=== PATIENT | female | born 1955 | race Caucasian/White ===

== ENCOUNTER 2016-06-21 01:00 | Emergency (ER) | payer OTHER ==
[~2016-06-21] VITALS: Ht 154.9 cm; Wt 47.7 kg
[~2016-06-21 01:00] MED LIST: AZAT100T PO; MESA800T PO; OSPE60TA2 PO; TRM50C PO
[2016-06-21 01:12] VITALS: BP 115/47; PULSE 63; RESP 22; O2SAT 100
--- NOTE | 2016-06-21 01:23 | ED.REPORT ---
HPI-Abd Pain F 40 and Over Date of Service Jun 21, 2016 ED Provider: Dr. Ramírez Cantu MD A 60 year old female with a history of ulcerative colitis presents to the ED complaining of abdominal pain that began at 1130 this evening. Associated symptoms include nausea and diarrhea. Patient denies any similar previous episodes of pain. She denies any vomiting or any chance of . Patient is a difficult historian due to discomfort. Nursing Notes Stated Complaint: R BACK SIDE PAIN Chief Complaint: Female Abdominal Pain Nursing Notes Reviewed: Yes Allergies: Coded Allergies: morphine (Verified Allergy, Intermediate, ITCHING, 09/04/15) Scheduled Ospemifene (Osphena) 60 Mg Tablet 60 MG PO DAILY Miscellaneous Medications Azathioprine (Azasan) 100 Mg Tablet [address] (Asacol HD) 800 Mg Tablet.dr 800 MG PO Triamterene (Dyrenium) 50 Mg Capsule 50 MG PO General Time Seen by MD: 01:23 Chief Complaint Abdominal pain Hx Obtained From: Patient Arrived By: Walk-in Sudden in Onset?: No Onset Occurred: 1 - 4 hours ago Symptom Duration: Since onset Progression since Onset: Unchanged Location: : Flank right Quality: Painful Radiation: : Does not radiate Severity: Current: Moderate Severity: Maximum: Moderate Associated with: Reports: Diarrhea, Nausea, Denies: Chills, Fever, Vomiting Pertinent Negative: Pt denies other symptoms Status: test pending Recent Healthcare: No recent doctor visit, No recent hospitalization Risk Factors )( AAA Risk Stratification Risk factors reviewed Past Medical History Past Medical History Ulcerative colitis Past Surgical History Endoscopy Smoking History Never Smoker Social History Other Social History: Good social support, Local resident Ambulatory Status Independent Review of Systems Constitutional: Denies: Chills, Fever GI: Reports: Abdominal pain, Diarrhea, Nausea, Denies: Vomiting Female: Denies: Complete sys rev & neg: except as marked. Physical Exam Vital Signs Vital Signs (First) Date Time Temp Pulse Resp B/P Pulse Ox O2 Delivery O2 Flow Rate FiO2 06/21/16 01:12 36.2 63 22 115/47 100 Room Air Initial VS: Reviewed Head / Eyes: Atraumatic, Normocephalic, PERRL Neck: Supple, Non-tender, Full range of motion Extremities: Vascular intact, Neuro intact, No swelling, No tenderness Skin: Warm, Dry, No cyanosis Neurologic: Alert, Oriented, Nonfocal Psychiatric: Mood/affect normal, Behavior normal, Normal thought content General/Constitutional: Awake, Alert Distress / Hydration: Positive: Distress moderate (groaning in pain ) Respiratory / Chest: Atraumatic, Breath sounds NL, Breath sounds = bilat, No respiratory distress Cardiovascular: Heart rate NL, Regular rhythm, Heart sounds NL Abdomen: Atraumatic, Soft, Non-tender Back: Atraumatic Flank / Spine / Paraspinal: Positive: Flank tender R Interpretation & Diagnostics Lab Results Interpretation Result Diagram: 06/21/16 0145 06/21/16 0145 Test 06/21/16 01:45 White Blood Count 5.2th/mm3 (3.8-10.1) Red Blood Count 3.55mil/mm3 (3.90-5.20) Hemoglobin 12.0g/dL (12.0-15.6) Hematocrit 35.2% (35.0-46.0) Mean Corpuscular Volume 99.2fL (81-100) Mean Corpuscular Hemoglobin 33.8pg (27.0-35.0) Mean Corpuscular Hemoglobin Concent 34.1% (32.0-37.0) Red Cell Distribution Width 12.8% (12.3-15.4) Platelet Count 223bil/L (150-400) Neutrophils (%) (Auto) 54.2% (40-74) Lymphocytes (%) (Auto) 36.2% (14-46) Monocytes (%) (Auto) 7.7% (4-12) Eosinophils (%) (Auto) 1.3% (0-5) Basophils (%) (Auto) 0.4% (0-3) Prothrombin Time 10.5sec (8.1-12.5) Prothromb Time International Ratio 0.98ratio Urine Color Yellow (YELLOW) Urine Appearance Clear (CLEAR,HAZY) Urine pH 7.0 (5.0-8.0) Urine Specific [place] 1.015 (1.003-1.035) Urine Protein Negativemg/dL (NEG,TRACE) Urine Glucose (UA) Negativemg/dL (NEGATIVE) Urine Ketones Negativemg/dL (NEGATIVE) Urine Occult Blood Negative (NEGATIVE) Urine Nitrite Negative (NEGATIVE) Urine Bilirubin Negative (NEGATIVE) Urine Urobilinogen Normalmg/dL (NORMAL) Urine Leukocyte Esterase Negative (NEGATIVE) Urine RBC 0-2/hpf (0-2) Urine WBC 0-5/hpf (0-5) Urine Epithelial Cells Moderate/hpf (NONE-MOD) Urine Crystals None seen (NONE SEEN) Urine Bacteria Few/hpf (NONE-FEW) Urine Hyaline Casts None/lpf (NONE) Urine Granular Casts None seen (NONE SEEN) Urine Waxy Casts None seen (NONE SEEN) Urine Red Blood Cell Casts None seen (NONE SEEN) Urine White Blood Cell Casts None seen (NONE SEEN) Urine Mucus None seen (None Seen) Urine Trichomonas None seen (NONE SEEN) Urine Yeast None (NONE SEEN) Urinalysis Comment None Urine Culture Reflexed Not indicated Sodium Level 143mEq/L (134-144) Potassium Level 3.0mEq/L (3.5-5.2) Chloride Level 100mEq/L (97-108) Carbon Dioxide Level 25mmol/L (18-29) Blood Urea Nitrogen 21mg/dL (6-24) Creatinine 1.00mg/dL (0.57-1.00) Estimat Glomerular Filtration Rate 82mL/min (>59) Glucose Level 183mg/dL (60-99) Lactic Acid Level 1.5mmol/L (0.4-2.0) Calcium Level 9.5mg/dL (8.5-10.1) Total Bilirubin 0.2mg/dL (0.0-1.2) Aspartate Amino Transf (AST/SGOT) 21U/L (0-50) Alanine Aminotransferase (ALT/SGPT) 7U/L (0-32) Alkaline Phosphatase 44U/L (25-150) Total Protein 6.7g/dL (6.4-8.4) Albumin 4.3g/dL (3.4-5.0) Lipase 37U/L (13-60) CT Abd / Pelvis Interpretation IMPRESSION: Distal right ureteral calculus with moderate right hydroureteronephrosis. Bilateral nephrolithiasis. Study type: Abdominal CT IV contrast, Abdom CT oral contrast Interpretation / Wet Read by: Interpret - Radiologist ([facility]) Re-Eval/Medical Decision Re-Evaluation/Progress #1: Time of Eval: 01:30 Patient Status: Condition improved Re-Evaluation/Progress Note: Patient is rechecked. She is informed of her lab results and diagnosis. All of the patient's questions are addressed. She understands and agrees with the treatment plan. Re-Evaluation/Progress #2: Time of Eval: 03:20 Patient Status: Condition improved Re-Evaluation/Progress Note: Distress has completely resolved and patient is requesting discharge. All of the patient's questions about her diagnosis are addressed. She understands and agrees with the treatment plan. Counseled Regarding: Diagnosis, Lab results, Need for follow-up, When/why to return to ED Discharge & Departure Primary Impression: Ureteral stone with hydronephrosis Disposition: Home Discharge Condition All VS Reviewed: Yes Condition: Improved Patient Instructions: Renal Colic (ED) Additional Instructions: The CAT scan shows that you have a 3 mm stone in the right distal ureter just proximal to your bladder. Hopefully this will pass in the next day or 2. You have some swelling of your right ureter and kidney the goes along with this. You do also have some multiple additional stones in both of her kidneys however. There does not appear to be any past history of stones on the left side. Your laboratory work is otherwise reassuring. It is essential that she stay well-hydrated. Take 1-2 [place] every 6 hours as needed for severe pain. Take Zofran 1 every 6-8 hours as needed for nausea. Strain your urine. If you are able to collect a stone take it to her primary care for follow-up analysis. You may need referral to urology. Discussed this with her primary care and follow-up as well. He did have a significant number of kidney stone sweating follow-up is essential. Call your doctor Friday morning for follow-up appointment. Do not hesitate to return if you have any problems or any worsening symptoms. Come back right away if you develop a fever. Do not drive or drink alcohol or consume acetaminophen tonight while taking the [place]. Take Flomax once daily. This may help pass the stone. Standard up slowly while taking the Flomax as it can lower her blood pressure. Referrals: Alexandre Gallego DO (PCP) Viri Attestation Portions of this note were transcribed by Brynn Cheung. I, Dr. Cantu personally performed the history, physical exam and medical decision-making; I reviewed and confirmed the accuracy of the information in the transcribed note. Signed by: Viri Esquivel, 06/21/16 [id number]. copies to: Alexandre Gallgeo Todd P DO Jun 21, 2016 01:23 BRYNN CHEUNG Jun 21, 2016 01:31
[2016-06-21] MEDS ORDERED: 0.9% Sodium Chloride 1,000 ML IV ONE (01:26)
[2016-06-21] MEDS ORDERED: Ondansetron 2 mg/mL 2 mL Inj IVPUSH PRN (01:30)
[2016-06-21] MEDS: HYDROmorphone 1 mg/mL Inj IVPUSH PRN ×2 (01:37→02:45)
[2016-06-21 01:55] LABS: BASOPHILS % (AUTO) 0.4 % (0-3); EOSINOPHILS % (AUTO) 1.3 % (0-5); MONOCYTES % (AUTO) 7.7 % (4-12); Mean Corpuscular Hemoglobin 33.8 pg (27.0-35.0); Mean Corpuscular Volume 99.2 fL (81-100); NEUTROPHILS % (AUTO) 54.2 % (40-74); Platelet Count 223 bil/L (150-400)
[2016-06-21 01:57] LABS: APPEARANCE,URINE CLEAR (CLEAR,HAZY); COLOR,URINE YELLOW (YELLOW); OCCULT BLOOD,URINE NEGATIVE (NEGATIVE); UROBILINOGEN,URINE NORMAL (NORMAL)
[2016-06-21 02:10] LABS: INR 0.98 ratio
[2016-06-21] MEDS ORDERED: _HYDROcodone/APAP 5-325 mg Tablet PO PRN (03:10)
[2016-06-21] MEDS ORDERED: _Ondansetron ODT 4 mg Tablet PO PRN (03:10)
[2016-06-21 03:43] VITALS: BP 121/67; PULSE 70; RESP 16; O2SAT 97
[2016-06-21] MEDS ORDERED: HYDROmorphone 0.5 mg/0.5 mL iSecure Syringe IVPUSH ONE (03:50)
[2016-06-21] MEDS ORDERED: Ondansetron 8 mg ODT Tablet PO ONE (03:55)
--- NOTE | 2016-06-21 10:41 | DRSVH ---
PROCEDURE: CT KUB ([id number]) INDICATIONS: right flank pain TECHNIQUE: Noncontrast 5 mm thick sections acquired from the diaphragms to the symphysis. 5 mm thick coronal an d sagittal reformats were then performed. For radiation dose reduction, the following was used: aut omated exposure control, adjustment of mA and/or kV according to patient size. COMPARISON: None. FINDINGS: Image quality: Excellent. Lung bases: Lung bases are clear. Heart size is normal. Urinary system: Both kidneys are normal in size. 3 mm stone is noted in the distal right ureter imme diately proximal to the right UVJ. A right ureteral stone is causing moderate right-sided hydroureter onephrosis. Numerous, small, 1-2 mm in diameter nonobstructing right renal stones are noted. Small, a pproximately 1 mm diameter nonobstructing stones are noted in the inferior pole of the left kidney. N o left-sided hydronephrosis. Urinary bladder is completely decompressed which limits diagnostic sensi tivity. No gross abnormalities identified in the urinary bladder. Other solid organs: Liver and spleen are normal in size. Gallbladder is within normal limits. Panc reas is normal in contours. No adrenal nodules. Peritoneum and bowel: Unenhanced bowel loops demonstrate normal wall thickness and caliber. No free fluid or air. The appendix is not definitely visualized. Nodes and vessels: No retroperitoneal or mesenteric adenopathy by size criteria. Aorta and inferior vena cava are normal in caliber. Abdominal wall: No ventral hernias. Pelvis: No free pelvic fluid. No inguinal hernias or adenopathy. Calcified lymph node noted in the right groin. Bones: No suspicious bony lesions. No vertebral body compression fractures. IMPRESSION: 1. 3 mm distal right ureteral stone causing moderate right hydroureteronephrosis. 2. Numerous, bilateral nonobstructing renal stones. 3. Appendix is not definitely visualized and early manifestation of appendicitis cannot be completely excluded. No secondary signs of appendicitis noted adjacent to the cecum in the current study. Dictated by: Nadia Florian MD, PhD on 06/21/2016 at 10:35 Approved by: Nadia Florian MD, PhD on 06/21/2016 at 10:40
== END 2016-06-21 03:45 | disposition home or self-care (01) ==
LOC: SED 01:00
DX: N13.2 Hydronephrosis with renal and ureteral calculous obstruction (principal); Z88.5 Allergy status to narcotic agent
CPT/HCPCS: 36415; 74176; 80053; 81000; 83605; 83690; 85025; 85610; 96361; 96374; 96375; 96376; 99285; J1170; J1885; J2405; J7030